=== PATIENT | female | born 1955 | race Caucasian/White ===

== ENCOUNTER 2019-01-31 05:58 | Emergency (ER) | payer BC, OTHER ==
[2019-01-31] MEDS ORDERED: Proparacaine 0.5% Ophth Soln 15 ML Bottle EYELF STA (06:20)
[2019-01-31] MEDS ORDERED: Fluorescein 0.6 MG Ophth Strip EYELF ONE ×2 (06:30→06:31)
--- NOTE | 2019-01-31 06:49 | EDM.PDOC ---
ED HPI GENERAL MEDICAL PROBLEM - General Chief Complaint: Eye Problems Stated Complaint: LEFT EYE ITCHY AND SWOLLEN SHUT Time Seen by Provider: 01/31/19 06:10 Source of Information: Reports: Patient, RN Notes Reviewed History Limitations: Reports: No Limitations - History of Present Illness INITIAL COMMENTS - FREE TEXT/NARRATIVE: The patient states that she got very dirty while gardening yesterday. She states that she had dirt in her hair and on her face. She states that she was using granulated fertilizer and a lot of bone meal. She states that her left eye became itchy around 16:00, and then developed a foreign body sensation and mild swelling. She woke this morning with crusting of the left eye with a green discharge, and swelling so bad that the eye is nearly swollen shut. Her right eye is also feeling itchy this morning, although she does not have a foreign body sensation in the right eye. No prior similar symptoms. The patient has not tried any iviz-blb-btbphiy home remedies. The patient does not wear contact lenses. The patient denies having a history of allergic rhinitis. The patient's PCP is Dr. Herrera. Left Eye Pain Score (Numeric/FACES): 3 - Related Data Allergies Allergy/AdvReac Type Severity Reaction Status Date / Time No Known Allergies Allergy Verified 01/31/19 06:10 Home Meds: Home Meds . [No Known Home Meds] 01/31/19 [History] Past Medical History Gastrointestinal History: Reports: Diverticulosis (diverticulitis) - Past Surgical History GI Surgical History: Reports: Cholecystectomy (1979), Hernia, Abdominal ( umbilical, as an ) Female Surgical History: Reports: Other (See Below) (Cervical cerclage) Social & Family History - Tobacco Use Smoking Status *Q: Never Smoker - Caffeine Use Caffeine Use: Reports: Coffee - Alcohol Use Alcohol Use History: Yes Alcohol Use Frequency: Socially - Recreational Drug Use Recreational Drug Use: No - Living Situation & Occupation Living situation: Reports: , with Spouse Occupation: Employed (Psychologist) ED ROS GENERAL - Review of Systems Review Of Systems: ROS reveals no pertinent complaints other than HPI. ED EXAM GENERAL W FULL EYE - Physical Exam Exam: See Below Exam Limited By: No Limitations General Appearance: Alert, WD/WN, No Apparent Distress Eye Exam: Left Eye: Other (Significant chemosis. Green blepharitis), Bilateral Eye: EOMI Eyelids: Right: Normal Appearance, Left: Edema (substantial, upper), Lid Everted for Exam Conjunctiva & Sclera: Left: Discharge, Bilateral: Injected (Mild on right, significant on left) Cornea Exam: Left: Examined with Flourescein, Bilateral: Normal Appearance Extraocular Movements: Bilateral: Intact Pupils: Normal Accommodation Pupillary Size: Bilateral: 5 mm Pupillary Reaction: Bilateral: Brisk Anterior Chamber: Bilateral: Normal Appearance Course - Vital Signs Last Recorded V/S: Last Vital Signs Temp 36.6 C 01/31/19 06:08 Pulse 84 01/31/19 06:08 Resp 18 01/31/19 06:08 BP 155/95 H 01/31/19 06:08 Pulse Ox 96 01/31/19 06:08 - Orders/Labs/Meds Meds: Medications Discontinued Medications Generic Name Dose Route Start Last Admin Trade Name Betty PRN Reason Stop Dose Admin Fluorescein Sodium 0.6 mg 01/31/19 06:30 01/31/19 06:35 Ful-Мария EYELF 01/31/19 06:31 Not Given ONETIME ONE Fluorescein Sodium 0.6 mg 01/31/19 06:31 01/31/19 06:42 Ful-Мария EYELF 01/31/19 06:32 0.6 mg ONETIME ONE Administration Proparacaine HCl 1 ml 01/31/19 06:20 01/31/19 06:42 Proparacaine 0.5% Ophth Soln EYELF 01/31/19 06:21 1 drop ONETIME STA Administration - Re-Assessments/Exams Free Text/Narrative Re-Assessment/Exam: 01/31/19 06:44 Proparacaine was instilled into both eyes, but fluorescein examination under would slap was performed only on the left, as the patient complained of a foreign body sensation only in the left eye. The patient has conjunctival hyperemia, and significant chemosis (edema), along with blepharitis, in the form of a greenish discharge to her left eye, that appears to be developing in her right eye, as well. She reports itchiness to both eyes, along with a foreign body sensation to her left eye. No foreign body or corneal abrasion was found on fluorescein with Wood's lamp examination therefore the patient likely is suffering from allergic conjunctivitis. I'm going to recommend that she start using an iidj-jdt-guqknph antihistamine + vasoconstrictor eyedrop, such as Naphcon-A or Opcon-A, along with frequent use of refrigerated artificial tears. Cool compresses to the affected eye or eyes may help, as well. I explained that it is very important that the patient not rub her eyes, and that it is very important that she not expose herself to the allergen, although it is not clear if it is the granulated fertilizer or the bone meal that she was dealing with, or something else, that is the affecting agent. If the patient does not have significant relief by tomorrow, I would like her to follow-up with an eye doctor. Departure - Departure Time of Disposition: 06:47 Disposition: Home, Self-Care 01 Condition: Good Clinical Impression: Allergic conjunctivitis of both eyes - Discharge Information *PRESCRIPTION DRUG MONITORING PROGRAM REVIEWED*: Not Applicable *COPY OF PRESCRIPTION DRUG MONITORING REPORT IN PATIENT YONY: Not Applicable Referrals: Sharath Herrera MD [Primary Care Provider] - Forms: ED Department Discharge Additional Instructions: You were seen in the emergency room for itchiness, swelling, a foreign body sensation, and greenish drainage from your left eye, with similar symptoms developing in your right eye. Workup in the ER included fluorescein examination of your eye under Marti lamp, which did not find a foreign body or scratch to your eye. Based on your history and physical examination, you are most likely suffering from allergic conjunctivitis. It is unclear if it is the chemical fertilizer, the bone meal, or something else that you are having an allergic reaction to, but it is highly likely that if you're exposed to it again, he will have a similar reaction again. We recommend that you purchase an dhzt-ddq-gxyqcas antihistamine + vasoconstrictor eyedrop, such as Naphcon-A or Opcon-A. A generic version is just as good as the brand name. Instill 1-2 drops in both eyes 4 times a day. We also recommend that you purchase artificial tears, refrigerated them, and instill them in each of your eyes several times a day, as well. Cool compresses to your eyes may help with the swelling and symptoms. It is very important that you do not rub your eyes. If your symptoms have not significantly improved by tomorrow, we recommend that you follow-up with an eye doctor. If any other problems, please do not hesitate to return to the ER.
== END 2019-01-31 07:03 | disposition home or self-care (01) ==
LOC: JD.ED 05:58
DX: H10.13 Acute atopic conjunctivitis, bilateral (principal)
CPT/HCPCS: 99283